=== PATIENT | male | born 1955 | race Caucasian/White ===

== ENCOUNTER 2023-12-29 03:57 | Emergency (ER) | payer MEDICARE ==
[2023-12-29] MEDS: Doxycycline Monohydrate 100 MG Cap PO ONE (04:18)
[2023-12-29 04:55] VITALS: BP 140/110; PULSE 92
== END 2023-12-29 04:36 | disposition home or self-care (01) ==
LOC: JD.ED 03:57
DX: L02.512 Cutaneous abscess of left hand (principal); L03.012 Cellulitis of left finger; Z88.0 Allergy status to penicillin; Z79.899 Other long term (current) drug therapy
CPT/HCPCS: 99283; A9270